=== PATIENT | male | born 2000 | race Caucasian/White ===

== ENCOUNTER 2023-04-01 13:02 | Emergency (ER) | payer BC, MEDICAID, SELFPAY ==
[2023-04-01 13:26] VITALS: BP 122/74; PULSE 82; RESP 16; TEMP 37.2; O2SAT 99; BMI 23.0
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
[2023-04-01 14:38] VITALS: PULSE 81; RESP 16; O2SAT 100
== END 2023-04-01 14:40 | disposition home or self-care (01) ==
PROVIDERS: Emergency Provider Physician Assistant; PCP Family Medicine
DX: Z04.1 Encounter for examination and observation following transport accident (principal); V89.2XXA Person injured in unspecified motor-vehicle accident, traffic, initial encounter; F17.210 Nicotine dependence, cigarettes, uncomplicated
CPT/HCPCS: 99283

== ENCOUNTER 2023-10-07 19:21 | Emergency (ER) | payer BC, SELFPAY ==
[2023-10-07 19:24] VITALS: BP 132/78; PULSE 87; RESP 16; TEMP 36.8; O2SAT 97; BMI 20.5
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
--- NOTE | 2023-10-07 20:01 | CTR_ITS ---
PROCEDURE INFORMATION: Exam: CT Cervical Spine Without Contrast Exam date and time: 10/07/2023 8:43 PM Age: 23 years old Clinical indication: Patient HX: C/O bilateral upper ext. Numbness; Additional info: Cervical radilopathy TECHNIQUE: Imaging protocol: Computed tomography of the cervical spine without contrast. Axial, coronal and sagittal reformatted images were created and reviewed. Radiation optimization: All CT scans at this facility use at least one of these dose optimization techniques: automated exposure control; mA and/or kV adjustment per patient size (includes targeted exams where dose is matched to clinical indication); or iterative reconstruction. REPORTING DATA: Count of CT and Cardiac NM exams in prior 12 months: This patient has received 0 known CTs and 0 known cardiac nuclear medicine studies in the 12 months prior to the current study. COMPARISON: No relevant prior studies available. RADIATION DOSE METRICS: Total DLP (mGy-cm): 407.67 FINDINGS: Bones/joints: Straightening of the normal Normal cervical lordosis. No CT evidence of acute fracture, dislocation or subluxation. Alignment anatomic. Vertebral body heights maintained. Mild multilevel spondylosis without significant spinal canal or neural foraminal stenosis. Lungs: Grossly unremarkable. Soft tissues: Grossly unremarkable. CT/CT cervical spin wo con* [id number]: 1[address] No CT evidence of acute cervical spine pathology. 2. Additional findings, as above.
[2023-10-07] MEDS: LORazepam 2 mg/mL INJ 1 mL IM (20:11)
[2023-10-07 20:24] LABS: Erythrocyte Sedimentation Rate 3 mm/hr (0-10)
[2023-10-07 20:25] LABS: Basophils % 0.5 %; Eosinophils # 0.1 10^3/uL (0.0-0.8); Eosinophils % 1.2 %; Hematocrit 40.8 % (37-53); Lymphocytes # 2.5 10^3/uL (0.8-4.8); Lymphocytes % 31.9 %; Mean Corpuscular HGB Conc 33.1 g/dL (30-55); Mean Corpuscular Volume 90.7 fl (82-101); Mean Platelet Volume 9.7 fL (7.4-10.4); Monocytes # 0.7 10^3/uL (0.2-0.9); Monocytes % 8.6 %; Neutrophils # 4.41 10^3/uL (1.8-7.7); Neutrophils % 57.5 %; Nucleated Red Blood Cells % 0 %; Platelet Count 196 10^3/cmm (157-399); Red Cell Distribution Width 13.1 % (12.1-15.1); White Blood Count 7.67 10^3/uL (3.29-11.43)
[2023-10-07 20:44] LABS: Alanine Aminotransferase 7 U/L (0-41); Albumin Level 4.6 g/dL (3.5-5.2); Alkaline Phosphatase 46 U/L (40-130); Anion Gap 15.9 (5-19); Aspartate Amino Transferase 17 U/L (0-40); Blood Urea Nitrogen 18 mg/dL (6-20); C Reactive Protein 18.4 mg/L (0.0-4.9); Calcium 9.4 mg/dL (8.5-10.5); Carbon Dioxide 25 mmol/L (22-29); Chloride 98 mmol/L (98-107); Globulin 2.8 g/dL (1.3-4.6); Glomerular Filtration Rate 102.8 mL/min (90-130); Glucose 90 mg/dL (65-115); Osmolality Calculated 281 mOsm/kg (285-295); Potassium 3.9 mmol/L (3.5-5.1); Sodium 135 mmol/L (136-145); Total Bilirubin 0.6 mg/dL (0.15-1.2); Total Protein 7.4 g/dL (6.6-8.7)
[2023-10-07 20:57] VITALS: BP 112/66; PULSE 99; O2SAT 100
[2023-10-07 20:57] LABS: Slide Review Slide Review Perform
[2023-10-07] MEDS: cephALEXin 500 mg Capsule PO (21:23)
[2023-10-07] MEDS: gabapentin 300 mg Capsule PO (21:24)
[2023-10-07] MEDS: lidocaine 4% cream 5 gm 1 APPLIC TOPICAL (21:24)
[2023-10-07] MEDS: hyDROXYzine 25 mg Capsule 50 MG PO (21:24)
== END 2023-10-07 21:35 | disposition home or self-care (01) ==
PROVIDERS: Emergency Provider Nurse Practitioner Family; PCP Family Medicine
DX: M62.838 Other muscle spasm (principal); T23.231A Burn of second degree of multiple right fingers (nail), not including thumb, initial encounter; X19.XXXA Contact with other heat and hot substances, initial encounter; Z72.0 Tobacco use
CPT/HCPCS: 36415; 72125; 80053; 85025; 85651; 86140; 96372; 99284; J2060

== ENCOUNTER 2023-11-25 11:19 | Outpatient (CLI) | payer OTHER, SELFPAY ==
--- NOTE | 2023-11-25 11:31 | XR_ITS ---
WS: [id number] KNEE LEFT TECHNIQUE: 2 views of the left knee CLINICAL INFORMATION: L KNEE PAIN COMPARISON: None. FINDINGS: Prior postoperative changes BKA. Mild demineralization. Normal patella. No significant joint effusion . No other suspicious findings. IMPRESSION: LEFT BKA with mild demineralization. Kellgren-Win Classification: grade 0 (none): definite absence of x-ray changes of osteoarthritis
--- NOTE | 2023-11-25 11:31 | XR_ITS ---
WS: [id number] FOOT RIGHT TECHNIQUE: 2 views of the right foot CLINICAL INFORMATION: R FOOT PAIN COMPARISON: None. FINDINGS: Postoperative changes cannulated screw fixation across the tibial plafond. Flattening of the talocalc aneal articulation. Moderate joint arthritis in the midfoot. No acute fractures. IMPRESSION: 1. Postoperative changes cannulated screw fixation across the tibial plafond. 2. Suggestion of avulsion screw tip only seen on one view. This may be due to artifact but indetermi mona. This can be further evaluated with CT or additional radiographs of the foot for better detail. 3. Flattening of the talocalcaneal articulation. 4. 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
--- NOTE | 2023-11-25 11:31 | XR_ITS ---
WS: [id number] ANKLE RIGHT TECHNIQUE: 2 views of the right ankle CLINICAL INFORMATION: RT ANKLE PAIN COMPARISON: None. FINDINGS: Normal ankle mortise. Talar dome is normal. No visualized fractures. Normal visualized soft tissues. Cannulated screw fixation across the medial malleolus. IMPRESSION: No acute RIGHT ankle findings
--- NOTE | 2023-11-25 11:31 | XR_ITS ---
WS: [id number] HIP WITH PELVIS LEFT TECHNIQUE: 3 views of the left hip with pelvis CLINICAL INFORMATION: L HIP PAIN COMPARISON: None. FINDINGS: LEFT hip is normal in appearance. No acute fractures. Normal LEFT femoral head and neck. Normal visua lized proximal femur. LEFT pubic rami appear normal. IMPRESSION: Normal LEFT hip Tonnis classification:
== END 2023-11-25 11:20 | disposition home or self-care (01) ==
LOC: RAD 11:23
PROVIDERS: PCP Family Medicine; Visit Provider Dermatology
DX: M25.552 Pain in left hip (principal); Z89.512 Acquired absence of left leg below knee; M25.571 Pain in right ankle and joints of right foot; M19.071 Primary osteoarthritis, right ankle and foot; M79.671 Pain in right foot; Z98.890 Other specified postprocedural states
CPT/HCPCS: 73502; 73560; 73600; 73620